=== PATIENT | female | born 1990 | race American Indian/Alaskan Native ===

== ENCOUNTER 2017-01-16 12:44 | Emergency (ER) | payer SELFPAY ==
[2017-01-16 14:13] LABS: Basophils % (Auto) 0.2 % (0.0-1.8); Hematocrit 40.8 % (30.3-42.9); Hemoglobin 13.8 gm/dl (10.1-14.3); Mean Corpuscular HGB Conc 34 % (30-34); Mean Corpuscular Hemoglobin 33 pg (28-32); Mean Corpuscular Volume 97 fl (79-97); Platelet Count 205 K/mm3 (140-440); Red Blood Count 4.23 M/mm3 (3.65-5.03); Red Cell Distribution Width 13.6 % (13.2-15.2); White Blood Count 16.8 K/mm3 (4.5-11.0)
[2017-01-16 14:23] LABS: Anion Gap 21 mmol/L; BUN/Creatinine Ratio 11.81; Blood Urea Nitrogen 13 mg/dL (7-17); Calcium 8.8 mg/dL (8.4-10.2); Carbon Dioxide 22 mmol/L (22-30); Glucose 83 mg/dL (65-100); Potassium 3.2 mmol/L (3.6-5.0); Sodium 136 mmol/L (137-145)
[2017-01-16 14:47] LABS: Bacteria,Urine 1+ /HPF (Negative); Bilirubin,Urine SM (Negative); Blood,Urine SM (Negative); Ketones,Urine 20 mg/dL (Negative); Leukocyte Esterase,Urine NEG (Negative); Mucus,Urine 3+ /HPF; Nitrite,Urine NEG (Negative)
[2017-01-16 16:19] VITALS: BP 126/82
[2017-01-16] MEDS ORDERED: DECADRON IM ONE (17:27)
[2017-01-16] MEDS ORDERED: TORADOL IM ONE (17:27)
[2017-01-16] MEDS ORDERED: BICILLIN L-A IM ONE (17:27)
--- NOTE | 2017-01-16 17:30 | Emergency Department Report ---
ED ENT HPI - General Chief complaint: Nausea/Vomiting/Diarrhea Stated complaint: SORE THROAT Time Seen by Provider: 01/16/17 17:26 Source: patient Mode of arrival: Ambulatory Limitations: No Limitations - History of Present Illness Initial comments: 26-year-old female past medical history none presents with complaint of sore throat for 3-5 days. Patient states that she has trouble swallowing solids secondary to sore throat. Complaining of bodyaches fevers and chills. Patient speaking in full sentences no audible wheezing or stridor. No trismus, no drooling. MD complaint: sore throat Onset/Timin -: days(s) Location: throat Severity: moderate Severity scale (0 -10): 5 Quality: aching Consistency: constant Worsens with: swallowing Associated Symptoms: fever, sore throat - Related Data Previous Rx's Medication Instructions Recorded Last Taken Type Benzocaine/Menthol [Cepacol Sore 1 each MM Q4H PRN #1 box 01/16/17 Unknown Rx Throat Lozenge] Ibuprofen [Motrin] 800 mg PO Q8HR PRN #20 tablet 01/16/17 Unknown Rx Ondansetron [Zofran Odt] 4 mg PO Q8HR PRN #10 tab.rapdis 01/16/17 Unknown Rx Allergies Allergy/AdvReac Type Severity Reaction Status Date / Time No Known Allergies Allergy Unverified 01/16/17 13:32 ED Dental HPI - General Chief complaint: Nausea/Vomiting/Diarrhea Stated complaint: SORE THROAT Time Seen by Provider: 01/16/17 17:26 Source: patient Mode of arrival: Ambulatory Limitations: No Limitations - Related Data Previous Rx's Medication Instructions Recorded Last Taken Type Benzocaine/Menthol [Cepacol Sore 1 each MM Q4H PRN #1 box 01/16/17 Unknown Rx Throat Lozenge] Ibuprofen [Motrin] 800 mg PO Q8HR PRN #20 tablet 01/16/17 Unknown Rx Ondansetron [Zofran Odt] 4 mg PO Q8HR PRN #10 tab.rapdis 01/16/17 Unknown Rx Allergies Allergy/AdvReac Type Severity Reaction Status Date / Time No Known Allergies Allergy Unverified 01/16/17 13:32 ED Review of Systems ROS: Stated complaint: SORE THROAT Other details as noted in HPI Constitutional: denies: chills, fever Eyes: denies: eye pain, eye discharge, vision change ENT: throat pain. denies: ear pain Respiratory: denies: cough, shortness of breath, wheezing Cardiovascular: denies: chest pain, palpitations Endocrine: no symptoms reported Gastrointestinal: denies: abdominal pain, nausea, diarrhea Genitourinary: denies: urgency, dysuria, discharge Musculoskeletal: denies: back pain, joint swelling, arthralgia Skin: denies: rash, lesions Neurological: denies: headache, weakness, paresthesias Psychiatric: denies: anxiety, depression Hematological/Lymphatic: denies: easy bleeding, easy bruising ED Past Medical Hx - Past Medical History Previous Medical History?: No - Surgical History Past Surgical History?: No - Social History Smoking Status: Never Smoker Substance Use Type: None - Medications Home Medications: Home Medications Medication Instructions Recorded Confirmed Last Taken Type Benzocaine/Menthol [Cepacol Sore 1 each MM Q4H PRN #1 box 01/16/17 Unknown Rx Throat Lozenge] Ibuprofen [Motrin] 800 mg PO Q8HR PRN #20 tablet 01/16/17 Unknown Rx Ondansetron [Zofran Odt] 4 mg PO Q8HR PRN #10 tab.rapdis 01/16/17 Unknown Rx ED Physical Exam - General Limitations: No Limitations General appearance: alert, in no apparent distress - Head Head exam: Present: atraumatic, normocephalic - Eye Eye exam: Present: normal appearance, PERRL, EOMI - ENT ENT exam: Present: mucous membranes moist - Expanded ENT Exam Expanded Throat exam: Positive: tonsillar erythema (no visible peritonsillar abscess, uvula is midline), tonsillar exudate - Neck Neck exam: Present: normal inspection - Respiratory Respiratory exam: Present: normal lung sounds bilaterally. Absent: respiratory distress - Cardiovascular Cardiovascular Exam: Present: regular rate, normal rhythm. Absent: systolic murmur, diastolic murmur, rubs, gallop - GI/Abdominal GI/Abdominal exam: Present: soft, normal bowel sounds - Extremities Exam Extremities exam: Present: normal inspection - Back Exam Back exam: Present: normal inspection - Neurological Exam Neurological exam: Present: alert, oriented X3 - Psychiatric Psychiatric exam: Present: normal affect, normal mood - Skin Skin exam: Present: warm, dry, intact, normal color. Absent: rash ED Course Vital Signs 01/16/17 01/16/17 01/16/17 13:32 16:18 17:58 Temperature 98.5 F 99.3 F Pulse Rate 73 71 Respiratory 16 16 20 Rate Blood Pressure 118/76 Blood Pressure 126/82 [Left] O2 Sat by Pulse 100 100 Oximetry ED Medical Decision Making - Lab Data Result diagrams: 01/16/17 13:52 01/16/17 13:52 - Medical Decision Making A/P: Pharyngitis/tonsillitis 1-Motrin 800 when necessary, Zofran when necessary 2-throat lozenges 3-I advised patient to return to the ED if symptoms worsen Critical care attestation.: If time is entered above; I have spent that time in minutes in the direct care of this critically ill patient, excluding procedure time. ED Disposition Clinical Impression: Tonsillitis Disposition: DC-01 TO HOME OR SELFCARE Is pt being admited?: No Does the pt Need Aspirin: No Condition: Stable Instructions: Tonsillitis (ED) Prescriptions: Benzocaine/Menthol [Cepacol Sore Throat Lozenge] 1 each MM Q4H PRN #1 box PRN Reason: Sore Throat Ibuprofen [Motrin] 800 mg PO Q8HR PRN #20 tablet PRN Reason: Pain Ondansetron [Zofran Odt] 4 mg PO Q8HR PRN #10 tab.rapdis PRN Reason: Nausea Referrals: [facility] [Provider Group] - 3-5 Days [facility] [Outside] - 3-5 Days Forms: Work/School Release Form(ED)
[2017-01-16] MEDS ORDERED: LIDOCAINE VISCOUS 2% MM NR (17:45)
== END 2017-01-16 18:01 | disposition home or self-care (01) ==
LOC: ED 12:44
DX: J03.90 Acute tonsillitis, unspecified (principal)
CPT/HCPCS: 36415; 80048; 81001; 84703; 85025; 87430; 96372; 99283; J0561; J1100; J1885

== ENCOUNTER 2019-11-02 09:45 | Inpatient (IN) | payer MEDICAID ==
[2019-11-02] MEDS ORDERED: LACTATED RINGERS 1,000 ML ONE (10:30)
[2019-11-02] MEDS ORDERED: BICITRA ORAL LIQD 30ML PO NR (10:39)
[2019-11-02] MEDS ORDERED: FAMOTIDINE 20 MG/2 ML INJ IV NR (10:39)
[2019-11-02] MEDS ORDERED: METOCLOPRAMIDE 10 MG/2 ML INJ IV NR (10:39)
[2019-11-02] MEDS ORDERED: ceFAZolin/Water 2 GM/20 ML 2 GM/20 ML SYRINGE IV NR (11:00)
[2019-11-02] MEDS: LACTATED RINGERS 1,000 ML IV SCH ×2 (11:00→11:36)
[2019-11-02] MEDS ORDERED: OXYTOCIN 20 UNIT/1000ML DRIP 20 UNITS/1,000 ML BAG IV SCH ×2 (11:00→15:00)
[2019-11-02 11:22] LABS: Basophils % (Auto) 0.5 % (0.0-1.8); Eosinophils # (Auto) 0.1 K/mm3 (0.0-0.4); Eosinophils % (Auto) 1.6 % (0.0-4.3); Hematocrit 34.1 % (30.3-42.9); Hemoglobin 11.6 gm/dl (10.1-14.3); Lymphocytes % (Auto) 30.3 % (13.4-35.0); Mean Corpuscular HGB Conc 34 % (30-34); Mean Corpuscular Volume 96 fl (79-97); Monocytes # (Auto) 0.5 K/mm3 (0.0-0.8); Monocytes % (Auto) 7.6 % (0.0-7.3); Platelet Count 157 K/mm3 (140-440); Red Blood Count 3.55 M/mm3 (3.65-5.03); Red Cell Distribution Width 13.6 % (13.2-15.2)
[2019-11-02] MEDS ORDERED: ONDANSETRON 4 MG/2 ML INJ ONE (11:45)
[2019-11-02] MEDS ORDERED: DEXMEDETOMIDINE 200 MCG/2 ML VIAL IV ONE (11:45)
[2019-11-02] MEDS ORDERED: PHENYLEPHRINE/NS 1,000 MCG/10 ML SYRINGE (OR USE) IV ONE ×2 (12:33→13:06)
[2019-11-02] MEDS ORDERED: OXYTOCIN 10 UNIT/1 ML INJ ONE (12:33)
[2019-11-02] MEDS ORDERED: KETOROLAC 30 MG/1 ML INJ ONE (13:00)
[2019-11-02] MEDS ORDERED: diphenhydrAMINE 50 MG/ML VIAL ONE (13:06)
[2019-11-02] MEDS ORDERED: dexAMETHasone 20 MG/5 ML VIAL ONE (13:06)
--- NOTE | 2019-11-02 13:48 | Anesthesia Consultation ---
Anesthesia Consult and Med Hx Date of service: 11/02/19 - Airway Anesthetic Teeth Evaluation: Good ROM Head & Neck: Adequate Mental/Hyoid Distance: Adequate Mallampati Class: Class II Intubation Access Assessment: Good - Pulmonary Exam CTA: Yes - Cardiac Exam Cardiac Exam: RRR - Pre-Operative Health Status ASA Pre-Surgery Classification: ASA2 Proposed Anesthetic Plan: Spinal - Pulmonary Hx Asthma: No COPD: No Hx Pneumonia: No - Cardiovascular System Hx Hypertension: No - Central Nervous System Hx Seizures: No Hx Psychiatric Problems: No - Endocrine Hx Renal Disease: No Hx End Stage Renal Disease: No Hx Hypothyroidism: No Hx Hyperthyroidism: No - Hematic Hx Anemia: No Hx Sickle Cell Disease: No - Other Systems Hx Alcohol Use: No
--- NOTE | 2019-11-02 13:48 | Anesthesia Day of Surgery ---
Anesthesia Day of Surgery - Day of Surgery Patient Examined: Yes Patient H&P Reviewed: Yes Patient is NPO: Yes
--- NOTE | 2019-11-02 13:50 | Post Anesthesia Evaluation ---
- Post Anesthesia Evaluation Patient Participated: Yes Airway Patent: Yes Stable Respiratory Function: Yes Nausea/Vomiting: No Temp > 96.8F: Yes Pain Manageable: Yes Adequeate Hydration: Yes Anesthesia Complications: No Block Receding Appropriately: Yes Patient on Ventilator: No
--- NOTE | 2019-11-02 13:50 | Progress Note ---
Spinal Anesthesia Block - Spinal Anesthesia Block Start Time: 11:55 Stop Time: 12:00 Performed by:: GIRMA POST Procedure: Spinal anesthesia block is being performed for repeat . H&P, labs have been reviewed. Patient's questions and concerns have been answered. Informed consent has been performed. Timeout has was performed. Patient in sitting position on side of bed. Sterile prep and drape was performed. 3 mL 1% lido chloe skin wheal at L 3-L 4. Needle introducer advanced. 25-gauge spinal needle advanced, clear CSF negative blood. Spinal dose was given. All needles removed. Patient tolerated procedure well.
[2019-11-02] MEDS ORDERED: NALOXONE 0.4 MG/1 ML INJ IV PRN ×2 (13:51→14:07)
[2019-11-02] MEDS ORDERED: PROMETHAZINE 25 MG RECT SUPP PR PRN (13:51)
[2019-11-02] MEDS ORDERED: PROMETHAZINE 25 MG TAB PO PRN (13:51)
[2019-11-02] MEDS ORDERED: ONDANSETRON 4 MG/2 ML INJ IV PRN ×2 (13:51→14:09)
[2019-11-02] MEDS ORDERED: LANOLIN/ZINC/DIMETHICONE (LANSINOH) 7 GM TP PRN (14:07)
[2019-11-02] MEDS ORDERED: WITCH HAZEL/ GLYCERIN PAD TP PRN (14:07)
[2019-11-02] MEDS ORDERED: oxyCODONE /ACETAMINOPHEN 5-325MG TAB PO PRN (14:07)
[2019-11-02] MEDS ORDERED: KETOROLAC 30 MG/1 ML INJ IV PRN (14:07)
[2019-11-02] MEDS ORDERED: SENNOSIDES 8.6 MG TAB PO PRN (14:09)
--- NOTE | 2019-11-02 14:14 | Procedure Note ---
OB Delivery Note - Delivery Date of Delivery: 11/02/19 Surgeon: LEIA MCKEON Estimated blood loss: other (800cc) - Section Preop diagnosis: repeat , desires sterilization Postop diagnosis: same section procedure: section, repeat low transverse, bilateral tubal ligation Disposition: PACU Complications: none Narrative: Indication:29 yo with h/o prior LTCS is here at 39.3 weeks for her RLTCS as well as BTL for sterilization Findings: Normal uterus, tubes and ovaries except for moderate amount of peritoneal adhesions to the anterior wall of the uterus. No significant subcutaneous tissue scarring. Clear fluid. No nuchal cord. Procedure: Patient taken to the operating room and prepped and draped in the usual fashion. Pfannenstiel skin incision was made and carried down to the underlying fascia. Fascia was incised and the incision was extended june aterally. Rectus fascia dissected off the rectus muscle both superiorly and inferiorly. Peritoneum identified tented up and entered. Peritoneal incision extended superiorly and inferiorly with good visualization of the bladder. Bladder blade was placed. Above-noted adhesions were lysed. Uterine incision was made and the incision was extended bilaterally. The baby was delivered from in the typical vertex fashion. Baby bulb suctioned at the incision site and again after delivery. Cord was delayed clamped and cut and handed off to waiting team. The placenta was delivered spontaneously. The uterus was exteriorized and cleared of all clots and debris. Uterine incision closed with 0 Vicryl in a running locked fashion followed by a second imbricating layer of 0 Vicryl. Good hemostasis was noted. Her urine was clear. Attention was turned to the tubal ligation. Both tubes were ligated using 0 chromic x2 on each side. This was done successfully and without difficulty on both sides with good hemostasis noted afterwards, even after the uterus, tubes and ovaries were back in the abdominal cavity. Surgicel was placed over all the areas of dissection for the tubal ligation. The segments of tubes on each side were sent to pathology. Uterus tubes and ovaries return to the abdominal cavity. Gutters were cleared of all clots and debris and the pelvis was well irrigated. Good hemostasis noted. Interceed placed over the uterine incision and over the lower uterine segment in the midline. Attention was turned to the rectus fascia which was reapproximated with 0 Vicryl in a running fashion. Subcutaneous tissues was irrigated and reapproximated with 2-0 Vicryl in a running fashion. Skin was closed with 4-0 Vicryl in a subcuticular fashion followed by Dermabond. The procedure was concluded at this point and the patient tolerated the procedure well. All instrument and lap counts were correct. - Infant A at 1 minute: 8 at 5 minutes: 9 Gender: Male
[2019-11-03] MEDS: oxyCODONE /ACETAMINOPHEN 5-325MG TAB PO PRN ×4 (00:47→19:50)
[2019-11-03] MEDS: SIMETHICONE 80 MG CHEW TAB PO PRN ×2 (00:49→14:34)
[2019-11-03 05:10] LABS: Hematocrit 29.2 % (30.3-42.9); Hemoglobin 9.8 gm/dl (10.1-14.3)
[2019-11-03] MEDS: FERROUS SULFATE 325 MG TAB PO SCH ×2 (10:00→22:22)
--- NOTE | 2019-11-03 11:36 | Progress Note ---
Assessment and Plan - Patient Problems (1) S/P repeat low transverse Current Visit: Yes Status: Acute Plan to address problem: POD 1 - stable Continue routine postop orders Ambulation, abdominal binder encouraged Anticipate discharge in 24-48 hours (2) Status post tubal ligation Current Visit: Yes Status: Acute (3) Anemia due to blood loss, acute Current Visit: Yes Status: Acute Plan to address problem: Asymptomatic Iron therapy initiated Subjective - Subjective Date of service: 11/03/19 Principal diagnosis: POD #1; s/p Repeat LTCS with BTL Interval history: see OB Delivery Procedure Note Patient reports: appetite normal, voiding normally, pain well controlled, flatus, ambulating normally, no dizzy ambulation, no bowel movement : doing well, other (breast and bottle feeding) Objective - Vital Signs Latest vital signs: Vital Signs Temp Pulse Resp BP BP Pulse Ox 11/03/19 10:04 98.2 F 75 18 118/56 99 11/03/19 04:50 97.3 F L 88 20 102/86 99 11/03/19 00:26 97.9 F 67 20 99/51 98 11/02/19 20:48 97.4 F L 56 L 20 96/50 98 11/02/19 18:33 97.7 F 56 L 18 105/67 99 11/02/19 15:21 97.4 F L 87 18 105/74 Intake and Output 11/02/19 11/03/19 11/03/19 23:59 07:59 15:59 Intake Total 960 240 240 Output Total 1300 400 Balance -340 -160 240 Intake: Oral 720 240 240 Intake, Free Water 240 Output: Urine 1300 400 Indwelling Catheter 1300 Void 400 Other: Total, Intake Amount 240 240 240 Total, Output Amount 900 200 - Exam Abdomen: Present: normal appearance, soft Vulva: both: normal Uterus: Present: normal, firm, fundal height at umbilicus Extremities: Present: normal Incision: Present: normal, dry, intact, dressed Comments: small lochia - Labs Labs: Abnormal lab results 11/03/19 Range/Units 04:36 Hgb 9.8 L (10.1-14.3) gm/dl Hct 29.2 L (30.3-42.9) %
[2019-11-03] MEDS ORDERED: IBUPROFEN 800 MG TAB PO PRN (14:07)
--- NOTE | 2019-11-03 15:42 | XRay Report ---
CHEST 2 VIEWS INDICATION: Postop day 1, SOB, Right rib pain. COMPARISON: None FINDINGS: Support devices: None. Heart: Within normal limits. Lungs/pleura: No acute air space or interstitial disease. No pneumothorax. Additional findings: None. IMPRESSION: Normal chest x-ray Signer Name: Maximo Church Jr, MD Signed: 11/03/2019 3:37 PM Workstation Name: [id number]
[2019-11-03] MEDS ORDERED: MORPHINE 2 MG/1 ML INJ ONE (16:11)
[2019-11-03] MEDS ORDERED: MORPHINE 2 MG/1 ML INJ IM ONE (16:14)
[2019-11-03] MEDS: MAGNESIUM HYDROXIDE (MOM) ORAL LIQD UDC PO PRN (16:16)
[2019-11-04] MEDS: oxyCODONE /ACETAMINOPHEN 5-325MG TAB PO PRN ×5 (01:03→23:16)
[2019-11-04] MEDS: FERROUS SULFATE 325 MG TAB PO SCH ×2 (09:15→22:01)
--- NOTE | 2019-11-04 10:24 | Progress Note ---
Assessment and Plan - Patient Problems (1) S/P repeat low transverse Current Visit: Yes Status: Acute Plan to address problem: Continue routine PP orders Keep incision clean and dry Anticipate d/c home tomorrow F/U at office in 7 days for incision check (2) Anemia due to blood loss, acute Current Visit: Yes Status: Acute Plan to address problem: Asymptomatic Continue daily oral iron supplementation as directed Increase iron rich foods into diet Subjective - Subjective Date of service: 11/04/19 Principal diagnosis: POD #2; s/p Repeat LTCS with BTL Interval history: See admission H & P; OB operative note and PP progress notes Patient reports: appetite normal, voiding normally, pain well controlled, flatus, ambulating normally, no bowel movement : doing well, bottle feeding (and ) Objective - Vital Signs Latest vital signs: Vital Signs Temp Pulse Resp BP BP Pulse Ox 11/04/19 09:24 97.7 F 69 18 102/63 98 11/04/19 00:20 98.4 F 67 18 116/67 100 11/03/19 17:15 97.9 F 65 18 100/56 98 11/03/19 14:30 68 122/68 100 11/03/19 13:18 97.6 F 76 18 108/60 98 Intake and Output 11/03/19 11/04/19 11/04/19 23:59 07:59 15:59 Intake Total 480 480 Balance 480 480 Intake: Oral 480 480 Other: Total, Intake Amount 240 240 # Voids Void 1 1 - Exam Breasts: Present: normal Cardiovascular: Present: Regular rate Abdomen: Present: soft, tenderness Uterus: Present: firm, fundal height below umbilicus (U-2) Extremities: Present: normal Deep Tendon Reflex Grade: Normal +2 Incision: Present: dry, intact (steri-strips intact, no drainage or bleeding noted)
--- NOTE | 2019-11-04 10:28 | Discharge Summary ---
Providers - Providers Date of Admission: 11/02/19 09:45 Date of discharge: 11/05/19 (0900) Attending physician: LEIA MCKEON Primary care physician: TREVOR DIAZ Hospitalization Reason for admission: section Delivery: Procedure: bilateral tubal ligation, repeat low transverse Episiotomy: none Laceration: none Incision: dry, intact (no signs of infection noted) Other procedures: tubal ligation complications: none Discharge diagnosis: IUP at term delivered, other (Bilateral tubal ligation; anemia) [place] baby: male Hospital course: See admission H & P; OB operative summary and PP progress notes Condition at discharge: Stable Disposition: DC- TO HOME OR SELFCARE - Discharge Diagnoses (1) S/P repeat low transverse Status: Acute (2) Anemia due to blood loss, acute Status: Acute (3) Status post tubal ligation Status: Acute Plan - Discharge Medications Prescriptions: Ferrous Sulfate [Feosol 325 MG tab] 325 mg PO BID 30 Days #60 tablet Ibuprofen [Motrin 800 MG tab] 800 mg PO Q6HR PRN #30 tablet PRN Reason: Pain oxyCODONE /ACETAMINOPHEN [Percocet 5/325] 1 tab PO Q4HR PRN #30 tab PRN Reason: Pain , Severe (7-10) - Provider Discharge Summary Activity: routine, no sex for 6 weeks, no heavy lifting 4 weeks, no strenuous exercise Diet: other (Iron rich diet) Instructions: routine Additional instructions: [] Smoking cessation referral if applicable(refer to patient education folder for contact #) [] Refer to [facility] Booklet Call your doctor immediately for: * Fever > 100.5 * Heavy vaginal bleeding ( >1 pad per hour) * Severe persistent headache * Shortness of breath * Reddened, hot, painful area to leg or breast * Drainage or odor from incision. * Keep incision clean and dry at all times and follow doctor's instructions regarding bathing/showering - Follow up plan Follow up: TREVOR DIAZ CNM [Primary Care Provider] - 7 Days
[2019-11-04] MEDS: MAGNESIUM HYDROXIDE (MOM) ORAL LIQD UDC PO PRN (22:01)
[2019-11-05] MEDS ORDERED: diphenhydrAMINE 25 MG CAP PO PRN (00:54)
[2019-11-05] MEDS: oxyCODONE /ACETAMINOPHEN 5-325MG TAB PO PRN ×2 (05:19→09:16)
[2019-11-05] MEDS: FERROUS SULFATE 325 MG TAB PO SCH (09:16)
[2019-11-05] MEDS: SIMETHICONE 80 MG CHEW TAB PO PRN (09:33)
[2019-11-05 11:34] VITALS: BP 114/71
== END 2019-11-05 14:35 | disposition home or self-care (01) | DRG 765 ==
LOC: LD 09:45 → APU 10:37 → OB 15:07
PROVIDERS: ADMIT Obstetrics & Gynecology; ATTEND Obstetrics & Gynecology
PROC: 10D00Z1 Extraction of Products of Conception, Low, Open Approach (ICD-10-PCS; principal; 2019-11-02)
PROC: 0UB70ZZ Excision of Bilateral Fallopian Tubes, Open Approach (ICD-10-PCS; 2019-11-02)
DX: O34.211 Maternal care for low transverse scar from previous cesarean delivery (principal); D62 Acute posthemorrhagic anemia; O99.02 Anemia complicating childbirth; Z3A.39 39 weeks gestation of pregnancy; Z37.0 Single live birth; Z30.2 Encounter for sterilization
CPT/HCPCS: 36415; 71046; 85014; 85018; 85025; 86592; 86850; 86900; 86901; 88302; G0378; J0690; J1100; J1200; J1885; J2270; J2370; J2405; J2590; J2765; J3490; J7120